=== PATIENT | female | born 1990 | race Asian ===

== ENCOUNTER 2024-12-23 10:09 | Emergency (ER) | payer OTHER ==
[~2024-12-23] VITALS: Ht 157.5 cm; Wt 63.9 kg
[2024-12-23 10:11] VITALS: BP 119/76; TEMP 97.8; O2SAT 100
[2024-12-23] MEDS ORDERED: birth control pill (10:17)
[2024-12-23] MEDS ORDERED: LEXA1TAB PO (10:17)
== END 2024-12-23 10:45 | disposition home or self-care (01) ==
LOC: M ED 10:09
DX: T63.441A Toxic effect of venom of bees, accidental (unintentional), initial encounter (principal); Y92.9 Unspecified place or not applicable; Y93.9 Activity, unspecified